=== PATIENT | female | born 1980 | race Caucasian/White ===

== ENCOUNTER 2018-08-02 13:21 | Emergency (ER) | payer BC ==
[2018-08-02] MEDS: IBUPROFEN 200 MG TAB PO (15:51)
== END 2018-08-02 15:52 | disposition home or self-care (01) ==
LOC: FTE 13:21
DX: M79.81 Nontraumatic hematoma of soft tissue (principal); F17.210 Nicotine dependence, cigarettes, uncomplicated
CPT/HCPCS: 99282

== ENCOUNTER 2018-08-16 03:40 | Emergency (ER) | payer BC ==
[2018-08-16] MEDS: AMOXICILLIN 500 MG CAP PO (05:32)
[2018-08-16] MEDS: IBUPROFEN 800 MG TAB PO (05:33)
== END 2018-08-16 05:39 | disposition home or self-care (01) ==
LOC: FTE 03:40
DX: K04.7 Periapical abscess without sinus (principal); F17.210 Nicotine dependence, cigarettes, uncomplicated
CPT/HCPCS: 99283

== ENCOUNTER 2018-12-01 22:02 | Emergency (ER) | payer BC ==
[2018-12-02 00:56] LABS: URINE PH (Dip) POC 6.5 (5.0-8.5)
[2018-12-02 00:56] LABS: URINE BLOOD (Dip) POC Trace-intact (NEGATIVE); URINE GLUCOSE (Dip) POC Negative (NEGATIVE); URINE KETONES (Dip) POC Negative (NEGATIVE); URINE LEUKOCYTE EST (Dip) POC Negative (NEGATIVE); URINE NITRITE (Dip) POC Negative (NEGATIVE); URINE TOTAL PROTEIN POC Negative (NEGATIVE)
[2018-12-02] MEDS: IBUPROFEN 600 MG TAB PO (01:45)
[2018-12-02] MEDS: CEFTRIAXONE 1 GM INJ IM (03:29)
[2018-12-02] MEDS: AZITHROMYCIN 250 MG TAB PO (03:29)
== END 2018-12-02 03:50 | disposition home or self-care (01) ==
LOC: FTE 22:02
DX: R10.2 Pelvic and perineal pain (principal); R40.2412 Glasgow coma scale score 13-15, at arrival to emergency department; Z85.41 Personal history of malignant neoplasm of cervix uteri
CPT/HCPCS: 76830; 76856; 81003; 81025; 87210; 87591; 96372; 99285-25